=== PATIENT | male | born 1960 | race Two or more races ===

== ENCOUNTER → 2025-05-29 | Outpatient (CLI) | payer OTHER, SELFPAY ==
--- NOTE | 2025-05-29 10:50 | XR_ITS ---
EXAMINATION: PA lateral chest 2 views TECHNIQUE: Upright PA lateral chest 2 views Date and time: May 29, 2025, 1108 hours, comparison December 21, 2021 INDICATIONS: Diagnosis coccidiomycosis FINDINGS: Normal heart size Lungs are clear Moderate osteopenia IMPRESSION: No active disease
== END | disposition home or self-care (01) ==
PROVIDERS: PCP Obstetrics & Gynecology; Referring Provider Nurse Practitioner Family; Visit Provider Nurse Practitioner Family
DX: Z86.19 Personal history of other infectious and parasitic diseases (principal)
CPT/HCPCS: 71046